=== PATIENT | male | born 1955 | race Two or more races ===

== ENCOUNTER 2019-05-30 09:42 | Emergency (ER) | payer BC ==
[2019-05-30 10:58] VITALS: BP 173/77
--- NOTE | 2019-05-30 11:16 | UC ---
UC General HPI - HPI Summary HPI Summary: 63 yo gentleman c/o cough ongoing, worse the last few days, for 2 weeks. No fever / chills. Minimal sinus sx. No rash. No fever / chills. No sob. Last couple days has noted pain in left lateral chest with cough. Concerned about possible pneumonia. No hemoptysis. Minimal to no production. - History of Current Complaint Chief Complaint: UCRespiratory Stated Complaint: COLD X 2 WEEKS Time Seen by Provider: 05/30/19 10:59 Hx Obtained From: Patient Pain Intensity: 5 - Allergy/Home Medications Allergies/Adverse Reactions: Allergies Allergy/AdvReac Type Severity Reaction Status Date / Time amoxicillin Allergy Hives Verified 05/30/19 10:58 peanuts Allergy Mild Sneezing Uncoded 05/30/19 10:58 PMH/Surg Hx/FS Hx/Imm Hx Previously Healthy: Yes - Surgical History Surgical History: Yes Surgery Procedure, Year, and Place: COLONOCOPY AND ENDOSCOPY- 9 YEARS AGO- [facility] - RIGHT HAND EXPLORATORY - Family History Known Family History: Positive: None - Social History Alcohol Use: Weekly Alcohol Amount: 12 PACK PER WEEK Substance Use Type: None Smoking Status (MU): Never Smoked Tobacco Review of Systems All Other Systems Reviewed And Are Negative: Yes Constitutional: Positive: Negative Skin: Positive: Negative Eyes: Positive: Negative ENT: Positive: Negative Respiratory: Positive: Other - see hpi Cardiovascular: Positive: Negative Gastrointestinal: Positive: Negative Genitourinary: Positive: Negative Motor: Positive: Negative Neurovascular: Positive: Negative Musculoskeletal: Positive: Negative Neurological: Positive: Negative Psychological: Positive: Negative Is Patient Immunocompromised?: No Physical Exam Triage Information Reviewed: Yes Appearance: Well-Appearing, Well-Nourished Vital Signs: Initial Vital Signs Temp 98 F 05/30/19 10:55 Pulse 68 05/30/19 10:55 Resp 16 05/30/19 10:55 BP 173/77 05/30/19 10:55 Pulse Ox 100 05/30/19 10:55 Vital Signs Reviewed: Yes Eye Exam: Normal ENT: Positive: Pharyngeal erythema, Nasal congestion, TM dull Neck exam: Normal Neck: Positive: Supple, Nontender, No Lymphadenopathy Respiratory Exam: Other - + deep rhonchorus cough, bs equal. No distress. Respiratory: Positive: Normal breath sounds, No respiratory distress Cardiovascular Exam: Normal Cardiovascular: Positive: Brisk Capillary Refill Abdominal Exam: Normal Abdomen Description: Positive: Nontender Musculoskeletal Exam: Normal Neurological Exam: Normal - grossly nonfocal Psychological Exam: Normal - conversing easily and appropriately. nad. Skin Exam: Normal - no visible or reported rash. nondiaphoretic. Course/Dx - Course Course Of Treatment: Reviewed cxr report with pt. Reviewed need to f/u pcp. Reviewed coa / tx plan. Questions as posed answered to the best of my ability. - Diagnoses Provider Diagnosis: Bronchitis Discharge ED - Sign-Out/Discharge Documenting (check all that apply): Patient Departure All imaging exams completed and their final reports reviewed: Yes - Discharge Plan Condition: Stable Disposition: HOME Prescriptions: Azithromyxin NANCY (NF) [Z-Nancy (Zithromax) 250 mg tabs #6] 2 tab PO .TODAY, THEN 1 DAILY #6 tab predniSONE TAB* [Deltasone 10 MG TAB*] 10 mg PO DAILY #20 tab Patient Education Materials: Acute Bronchitis (ED), COPD (Chronic Obstructive Pulmonary Disease) (ED) Referrals: Rey Chakraborty MD [Primary Care Provider] - Additional Instructions: Follow up with your primary care physician, this week if possible, for recheck. Seek medical attention for worse or new problems in the meantime. Hydrate. Humidified air if possible. Xray report - possible copd - check with your primary care physician about this. - Billing Disposition and Condition Condition: STABLE Disposition: Home
== END 2019-05-30 12:33 | disposition home or self-care (01) ==
LOC: UCEAST 09:42
DX: J40 Bronchitis, not specified as acute or chronic (principal); Z88.0 Allergy status to penicillin; Z91.010 Allergy to peanuts
CPT/HCPCS: 71046; 99202; G0463